=== PATIENT | male | born 1990 ===

== ENCOUNTER 2018-05-16 09:31 | Emergency (ER) | payer BC ==
[~2018-05-16] VITALS: Ht 172.7 cm; Wt 77.1 kg
[2018-05-16 09:32] VITALS: BP 126/91; Ht 172.7 cm; Wt 77.1 kg
== END 2018-05-16 10:57 | disposition home or self-care (01) ==
LOC: ED 09:31
DX: F41.9 Anxiety disorder, unspecified (principal)